=== PATIENT | female | born 1955 | race Caucasian/White ===

== ENCOUNTER 2019-07-02 12:20 | Emergency (ER) | payer OTHER ==
[~2019-07-02] VITALS: Ht 139.7 cm; Wt 36.4 kg
[~2019-07-02 12:20] MED LIST: FLUO10CA17 PO; LEVO75TA84 PO; LIT300 PO; TRAZ-111 PO
[2019-07-02 12:42] VITALS: BP 142/83; PULSE 69; RESP 18; Ht 139.7 cm; Wt 36.4 kg
== END 2019-07-02 13:56 | disposition home or self-care (01) ==
LOC: E/R 12:20
DX: F31.9 Bipolar disorder, unspecified (principal); E03.9 Hypothyroidism, unspecified
CPT/HCPCS: 99281